=== PATIENT | male | born 1985 | race Caucasian/White ===

== ENCOUNTER 2016-09-12 16:43 | Emergency (ER) | payer OTHER ==
[~2016-09-12] VITALS: Ht 172.7 cm; Wt 80.9 kg
[2016-09-12 16:45] VITALS: TEMP 99.6
[2016-09-12] MEDS ORDERED: ADDERALL20 MG PO (17:02)
[2016-09-12] MEDS ORDERED: ATIVAN 0.50.5 MG/TAB PO (17:02)
[2016-09-12] MEDS ORDERED: ADDERALL XR25 MG PO (17:02)
[2016-09-12] MEDS ORDERED: REMERON 15M15 MG/TA1 PO (17:03)
[2016-09-12] MEDS ORDERED: ADDERALL XR20 MG PO (17:03)
[2016-09-12 17:28] LABS: HEMATOCRIT 45.4 % (42.0-52.0); HEMOGLOBIN 15.5 g/dl (13.5-18.0); MEAN CELL VOLUME 86 fl (80.0-100.0); MEAN CORPUSCULAR HEMOGLOBIN 29 pg (27.0-31.0); MEAN CORPUSCULAR HGB CONC 34 g/dl (33.0-37.0); MEAN PLATELET VOLUME 9.3 fl (7.4-10.4); PLATELET COUNT 211 K/mm3 (130-400); RED BLOOD COUNT 5.29 M/mm3 (4.20-5.60); REDCELL DISTRIBUTION WIDTH-CV 11.9 % (11.5-14.5); WHITE BLOOD COUNT 13.6 K/mm3 (4.8-10.8)
[2016-09-12 17:42] LABS: ALBUMIN 3.8 gm/dL (3.5-5.0); BILIRUBIN,TOTAL 0.7 mg/dL (0.0-1.0); C-REACTIVE PROTEIN 2.2 mg/dL (0.0-0.9); CALCIUM 8.8 mg/dL (8.4-10.2); CREATININE, serum 0.86 mg/dL (0.66-1.25); POTASSIUM 3.7 mmol/L (3.4-5.0); TOTAL PROTEIN 7.4 gm/dL (6.4-8.2)
[2016-09-12 17:43] LABS: INFLUENZA B NEGATIVE
[2016-09-12 17:47] LABS: ADD PATHOLOGY DIFF REVIEW YES; BAND 11 % (0-10); EOSINOPHIL 4 % (0-4); NEUTROPHILS 18 % (42.0-75.2); PLATELET ESTIMATE NORMAL (NORMAL); TOTAL CELLS COUNTED 100
[2016-09-12 17:49] LABS: ERYTHROCYTE SEDIMENTATION RATE 6 mm/hr (0-15)
[2016-09-12 19:09] VITALS: BP 132/90; PULSE 105
[2016-09-14 08:32] LABS: PATHOLOGY DIFF REVIEW OK +
== END 2016-09-12 19:30 | disposition home or self-care (01) ==
LOC: COL.ER 16:43
PROVIDERS: Emergency Medicine
DX: R61 Generalized hyperhidrosis (principal); R51 Headache; B34.9 Viral infection, unspecified; R00.0 Tachycardia, unspecified; R50.9 Fever, unspecified; R05 Cough; F17.210 Nicotine dependence, cigarettes, uncomplicated; F90.9 Attention-deficit hyperactivity disorder, unspecified type; F41.9 Anxiety disorder, unspecified; R55 Syncope and collapse
CPT/HCPCS: J2060; J7030

== ENCOUNTER 2016-11-30 17:39 | Emergency (ER) | payer OTHER ==
[~2016-11-30] VITALS: Ht 172.7 cm; Wt 85.9 kg
[~2016-11-30 17:39] MED LIST: ADDERALL XR20 MG PO; ADDERALL XR25 MG PO; ADDERALL20 MG PO; ATIVAN 0.50.5 MG/TAB PO; REMERON 15M15 MG/TA1 PO
[2016-11-30 17:40] VITALS: TEMP 98.3
[2016-11-30] MEDS ORDERED: CHANTIX 1MG1 MG PO (18:26)
[2016-11-30] MEDS ORDERED: AMOXICILLIN 8751 TAB PO (18:59)
[2016-11-30] MEDS ORDERED: PREDNISONE10 MG PO (18:59)
[2016-11-30 19:10] VITALS: BP 120/84; PULSE 91
== END 2016-11-30 19:10 | disposition home or self-care (01) ==
LOC: COL.ER 17:39
DX: J32.0 Chronic maxillary sinusitis (principal); J33.9 Nasal polyp, unspecified
CPT/HCPCS: J7512

== ENCOUNTER 2017-03-11 13:02 | Emergency (ER) | payer OTHER ==
[~2017-03-11] VITALS: Ht 172.7 cm; Wt 86.4 kg
[~2017-03-11 13:02] MED LIST changes: +AMOXICILLIN 8751 TAB PO; +CHANTIX 1MG1 MG PO; +PREDNISONE10 MG PO
[2017-03-11 13:08] VITALS: BP 126/84; PULSE 98; TEMP 98.3
[2017-03-11] MEDS ORDERED: ATIVAN 0.50.5 MG/TAB PO (13:50)
== END 2017-03-11 14:09 | disposition home or self-care (01) ==
LOC: COL.ER 13:02
DX: F41.9 Anxiety disorder, unspecified (principal); F43.10 Post-traumatic stress disorder, unspecified; F17.210 Nicotine dependence, cigarettes, uncomplicated

== ENCOUNTER → 2017-07-12 | Outpatient (CLI) | payer OTHER | LOC: MHCPAIN 08:21 | DX: G89.29 Other chronic pain (principal); M47.817 Spondylosis without myelopathy or radiculopathy, lumbosacral region; M54.16 Radiculopathy, lumbar region; M53.3 Sacrococcygeal disorders, not elsewhere classified | CPT/HCPCS: G0463 ==

== ENCOUNTER → 2017-07-15 | Outpatient (CLI) | payer OTHER | LOC: MHCPAIN 07:48 | DX: M47.27 Other spondylosis with radiculopathy, lumbosacral region (principal); M43.16 Spondylolisthesis, lumbar region; M48.061 Spinal stenosis, lumbar region without neurogenic claudication | CPT/HCPCS: J1100; Q9967 ==

== ENCOUNTER → 2017-07-30 | Outpatient (CLI) | payer OTHER | LOC: MHCPAIN 10:40 | DX: G89.29 Other chronic pain (principal); M47.817 Spondylosis without myelopathy or radiculopathy, lumbosacral region; M54.16 Radiculopathy, lumbar region; M53.3 Sacrococcygeal disorders, not elsewhere classified | CPT/HCPCS: G0463 ==

== ENCOUNTER → 2017-08-19 | Outpatient (CLI) | payer OTHER ==
[~2017-08-19] MED LIST changes: +CYMBALTA 20MG20 MG
== END ==
LOC: MHCPAIN 13:43
DX: M47.817 Spondylosis without myelopathy or radiculopathy, lumbosacral region (principal); M43.16 Spondylolisthesis, lumbar region
CPT/HCPCS: J1040; Q9967

== ENCOUNTER 2017-08-24 12:31 | Emergency (ER) | payer OTHER ==
[~2017-08-24] VITALS: Ht 172.7 cm; Wt 90.9 kg
[~2017-08-24 12:31] MED LIST changes: -CYMBALTA 20MG20 MG
[2017-08-24 12:36] VITALS: BP 139/91; TEMP 98.7
[2017-08-24] MEDS ORDERED: CYMBALTA 20MG20 MG (13:40)
[2017-08-24 13:49] LABS: BASO % 0.4 % (0.0-2.0); EOS # 0.1 (0.0-0.7); EOS % 0.5 % (0-4.0); GRAN # 6.2 (1.4-6.5); GRAN % 61.1 % (42.2-75.2); HEMATOCRIT 48.4 % (42.0-52.0); HEMOGLOBIN 16.5 g/dl (13.5-18.0); LYMPH # 3.2 (1.2-3.4); LYMPH % 31.7 % (20.0-51.0); MEAN CELL VOLUME 87 fl (80.0-100.0); MEAN CORPUSCULAR HEMOGLOBIN 30 pg (27.0-31.0); MEAN CORPUSCULAR HGB CONC 34 g/dl (33.0-37.0); MEAN PLATELET VOLUME 8.8 fl (7.4-10.4); MONO # 0.6 (0.1-0.6); MONO % 5.9 % (1.7-9.3); PLATELET COUNT 276 K/mm3 (130-400); RED BLOOD COUNT 5.54 M/mm3 (4.20-5.60); REDCELL DISTRIBUTION WIDTH-CV 11.6 % (11.5-14.5)
[2017-08-24 14:00] LABS: ALANINE AMINOTRANSFERASE 59 U/L (21-72); ALBUMIN 4.8 gm/dL (3.5-5.0); ALKALINE PHOSPHATASE 66 U/L (50-136); ANION GAP 13 mmol/L (7-16); AST,SGOT 27 U/L (15-37); BILIRUBIN,TOTAL 0.3 mg/dL (0.0-1.0); BLOOD UREA NITROGEN 12 mg/dL (9-20); CALCIUM 10.2 mg/dL (8.4-10.2); CARBON DIOXIDE 31 mmol/L (22-30); CHLORIDE 96 mmol/L (98-107); CREATININE, serum 0.87 mg/dL (0.66-1.25); GLUCOSE 91 mg/dL (74-106); LIPASE 59 U/L (23-300); POTASSIUM 3.9 mmol/L (3.4-5.0); SODIUM 140 mmol/L (137-145); TOTAL PROTEIN 9.1 gm/dL (6.4-8.2)
[2017-08-24 14:15] LABS: TROPONIN-I < 0.012 ng/mL (0.000-0.034)
[2017-08-24 15:15] VITALS: PULSE 108
== END 2017-08-24 15:16 | disposition home or self-care (01) ==
LOC: COL.ER 12:31
PROVIDERS: Physician Assistant
DX: F41.9 Anxiety disorder, unspecified (principal); R07.89 Other chest pain; F43.10 Post-traumatic stress disorder, unspecified

== ENCOUNTER → 2017-09-17 | Outpatient (CLI) | payer OTHER ==
[~2017-09-17] MED LIST changes: +CYMBALTA 20MG20 MG
== END ==
LOC: MHCPAIN 09:49
DX: G89.29 Other chronic pain (principal); M47.27 Other spondylosis with radiculopathy, lumbosacral region; M43.17 Spondylolisthesis, lumbosacral region; M53.3 Sacrococcygeal disorders, not elsewhere classified; F17.210 Nicotine dependence, cigarettes, uncomplicated
CPT/HCPCS: G0463

== ENCOUNTER → 2017-09-21 | Outpatient (CLI) | payer OTHER | LOC: COL.RAD 09:07 | DX: M43.17 Spondylolisthesis, lumbosacral region (principal) ==

== ENCOUNTER → 2017-09-23 | Outpatient (CLI) | payer OTHER | LOC: MHCPAIN 12:02 | DX: M47.27 Other spondylosis with radiculopathy, lumbosacral region (principal); M43.16 Spondylolisthesis, lumbar region; M46.96 Unspecified inflammatory spondylopathy, lumbar region | CPT/HCPCS: J1040; Q9967 ==

== ENCOUNTER → 2017-10-06 | Outpatient (CLI) | payer OTHER | LOC: MHCPAIN 10:06 | DX: G89.29 Other chronic pain (principal); M47.817 Spondylosis without myelopathy or radiculopathy, lumbosacral region; M54.16 Radiculopathy, lumbar region; M53.3 Sacrococcygeal disorders, not elsewhere classified | CPT/HCPCS: G0463 ==

== ENCOUNTER → 2017-11-25 | Outpatient (CLI) | payer OTHER | LOC: MHCPAIN 14:26 | DX: M47.817 Spondylosis without myelopathy or radiculopathy, lumbosacral region (principal); M43.07 Spondylolysis, lumbosacral region ==

== ENCOUNTER → 2017-12-16 | Outpatient (CLI) | payer OTHER | LOC: MHCPAIN 12:48 | DX: M54.16 Radiculopathy, lumbar region (principal) | CPT/HCPCS: J1100; J2250; J3010 ==

== ENCOUNTER → 2017-12-23 | Outpatient (CLI) | payer OTHER | LOC: MHCPAIN 12:21 | DX: M47.817 Spondylosis without myelopathy or radiculopathy, lumbosacral region (principal); M54.16 Radiculopathy, lumbar region | CPT/HCPCS: J1100; J2250; J3010 ==

== ENCOUNTER → 2018-02-22 | Outpatient (CLI) | payer OTHER | LOC: MHCPAIN 10:22 | DX: G89.29 Other chronic pain (principal); M47.817 Spondylosis without myelopathy or radiculopathy, lumbosacral region; M54.16 Radiculopathy, lumbar region; M53.3 Sacrococcygeal disorders, not elsewhere classified | CPT/HCPCS: G0463 ==

== ENCOUNTER → 2019-01-11 | Outpatient (CLI) | payer OTHER | LOC: MHCPAIN 12:47 | DX: G89.29 Other chronic pain (principal); M47.817 Spondylosis without myelopathy or radiculopathy, lumbosacral region; M54.16 Radiculopathy, lumbar region; M53.3 Sacrococcygeal disorders, not elsewhere classified | CPT/HCPCS: G0463 ==

== ENCOUNTER → 2019-12-11 | Outpatient (CLI) | payer OTHER | LOC: MHCPAIN 08:58 | DX: M47.817 Spondylosis without myelopathy or radiculopathy, lumbosacral region (principal); M54.5 Low back pain; M53.3 Sacrococcygeal disorders, not elsewhere classified; G89.29 Other chronic pain; M54.16 Radiculopathy, lumbar region | CPT/HCPCS: G0463 ==

== ENCOUNTER → 2019-12-14 | Outpatient (CLI) | payer OTHER | LOC: MHCPAIN 14:18 | DX: M47.817 Spondylosis without myelopathy or radiculopathy, lumbosacral region (principal); M54.5 Low back pain; M53.3 Sacrococcygeal disorders, not elsewhere classified; M54.16 Radiculopathy, lumbar region | CPT/HCPCS: J1100; Q9967 ==

== ENCOUNTER → 2020-01-23 | Outpatient (CLI) | payer OTHER | LOC: MHCPAIN 01-01 09:45 | DX: M47.817 Spondylosis without myelopathy or radiculopathy, lumbosacral region (principal); M54.5 Low back pain; M53.3 Sacrococcygeal disorders, not elsewhere classified; G89.29 Other chronic pain | CPT/HCPCS: G0463 ==

== ENCOUNTER → 2020-02-01 | Outpatient (CLI) | payer OTHER | LOC: MHCPAIN 12:16 | DX: M47.817 Spondylosis without myelopathy or radiculopathy, lumbosacral region (principal); M54.5 Low back pain | CPT/HCPCS: J2250; J3010 ==

== ENCOUNTER → 2020-02-05 | Outpatient (CLI) | payer OTHER | LOC: MHCPAIN 12:24 | DX: M47.817 Spondylosis without myelopathy or radiculopathy, lumbosacral region (principal); M54.5 Low back pain | CPT/HCPCS: J1040; J2250; J3010 ==

== ENCOUNTER 2020-08-14 15:19 | Emergency (ER) | payer OTHER ==
[~2020-08-14] VITALS: Ht 172.7 cm; Wt 88.6 kg
[2020-08-14 15:54] LABS: BASO % 0.2 % (0.0-2.0); EOS # 0.1 (0.0-0.7); EOS % 0.7 % (0-4.0); GRAN # 9.5 (1.4-6.5); GRAN % 70.9 % (42.2-75.2); HEMOGLOBIN 14.9 g/dl (13.5-18.0); LYMPH # 2.7 (1.2-3.4); LYMPH % 19.9 % (20.0-51.0); MEAN CELL VOLUME 88 fl (80.0-100.0); MEAN CORPUSCULAR HEMOGLOBIN 30 pg (27.0-31.0); MEAN CORPUSCULAR HGB CONC 34 g/dl (33.0-37.0); MEAN PLATELET VOLUME 9.3 fl (7.4-10.4); MONO # 1.1 (0.1-0.6); PLATELET COUNT 231 K/mm3 (130-400); REDCELL DISTRIBUTION WIDTH-CV 11.8 % (11.5-14.5)
[2020-08-14 16:15] LABS: ALBUMIN 4.5 gm/dL (3.5-5.0); BILIRUBIN,TOTAL 0.8 mg/dL (0.0-1.0); C-REACTIVE PROTEIN 5.7 mg/dL (0.0-0.9); CALCIUM 9.4 mg/dL (8.4-10.2); CREATININE, serum 0.89 (0.66-1.25); TOTAL PROTEIN 8.2 gm/dL (6.4-8.2)
[2020-08-14 17:23] LABS: COLLECTION METHOD CLEAN CATCH
[2020-08-14 17:34] LABS: PH 7 (5-8); SQUAMOUS EPITHELIAL None Seen /hpf; URINE APPEARANCE Clear; URINE BACTERIA None Seen /hpf; URINE BILIRUBIN Negative (NEGATIVE); URINE BLOOD Negative (NEGATIVE); URINE COLOR Straw; URINE GLUCOSE Negative (NEGATIVE); URINE KETONE Negative (NEGATIVE); URINE LEUKOCYTE ESTERASE 1+ (NEGATIVE); URINE NITRATE Negative (NEGATIVE); URINE PROTEIN(semi-quant) Negative (NEGATIVE); URINE RBC 0-2 /hpf; URINE UROBILINOGEN Negative (NEGATIVE)
[2020-08-14] MEDS ORDERED: ZOFRAN ODT4 MG PO (17:56)
[2020-08-14] MEDS ORDERED: NORCO 325 MG-51 TAB PO (17:57)
[2020-08-14 18:06] VITALS: BP 113/78; PULSE 98; TEMP 98.2
== END 2020-08-14 18:07 | disposition home or self-care (01) ==
LOC: COL.ER 15:19
PROVIDERS: Physician Assistant
DX: K85.90 Acute pancreatitis without necrosis or infection, unspecified (principal); K57.90 Diverticulosis of intestine, part unspecified, without perforation or abscess without bleeding; F41.9 Anxiety disorder, unspecified
CPT/HCPCS: J2270; J2405; J7030; Q9967

== ENCOUNTER 2023-12-22 17:26 | Emergency (ER) | payer OTHER ==
[~2023-12-22] VITALS: Ht 172.7 cm; Wt 88.2 kg
[~2023-12-22 17:26] MED LIST changes: +NORCO 325 MG-51 TAB PO; +ZOFRAN ODT4 MG PO
[2023-12-22 17:30] VITALS: TEMP 99.4
[2023-12-22] MEDS ORDERED: NS 1,000 ML IV ONE ×2 (17:45→18:45)
[2023-12-22 18:07] LABS: BASO % 0.3 % (0.0-2.0); EOS % 0.4 % (0.0-4.0); GRAN # 9.8 K/mm3 (1.4-6.5); GRAN % 91.8 % (42.2-75.2); HEMATOCRIT 45.4 % (42.0-52.0); HEMOGLOBIN 15.9 g/dl (13.5-18.0); LYMPH # 0.5 K/mm3 (1.2-3.4); LYMPH % 4.4 % (20.0-51.0); MEAN CELL VOLUME 86 fl (80.0-100.0); MEAN CORPUSCULAR HEMOGLOBIN 30 pg (27-31); MEAN CORPUSCULAR HGB CONC 35 g/dl (33.0-37.0); MEAN PLATELET VOLUME 9.4 fl (7.4-10.4); MONO # 0.3 K/mm3 (0.1-0.6); MONO % 2.9 % (1.7-9.3); PLATELET COUNT 246 K/mm3 (130-400); RED BLOOD COUNT 5.27 M/mm3 (4.20-5.60); REDCELL DISTRIBUTION WIDTH-CV 11.7 % (11.5-14.5)
[2023-12-22 18:17] LABS: ALBUMIN 4.5 g/dL (3.5-5.0); BILIRUBIN,TOTAL 0.8 mg/dL (0.2-1.2); CALCIUM 9.7 mg/dL (8.4-10.2); CREATININE, serum 0.91 mg/dL (0.72-1.25); POTASSIUM 3.9 mEq/L (3.5-4.5); TOTAL PROTEIN 7.8 g/dl (6.2-8.1)
[2023-12-22 18:55] LABS: COLLECTION METHOD CLEAN CATCH
[2023-12-22 19:03] LABS: URINE APPEARANCE Clear (CLEAR/HAZY); URINE COLOR Yellow (YELLOW); URINE GLUCOSE Negative (NEGATIVE); URINE KETONE 3+ (NEGATIVE); URINE NITRATE Negative (NEGATIVE); URINE PROTEIN(semi-quant) Negative (NEGATIVE)
[2023-12-22 19:04] LABS: URINE BLOOD 1+ (NEGATIVE)
[2023-12-22 19:43] VITALS: BP 128/86; PULSE 91
== END 2023-12-22 19:47 | disposition home or self-care (01) ==
LOC: COL.ER 17:26
PROVIDERS: Physician Assistant
DX: E86.0 Dehydration (principal)
CPT/HCPCS: J7030

== ENCOUNTER → 2024-04-12 | Outpatient (CLI) | payer OTHER | LOC: MHCPAIN 08:04 | DX: M54.16 Radiculopathy, lumbar region (principal); M54.50 Low back pain, unspecified; G89.29 Other chronic pain; M47.817 Spondylosis without myelopathy or radiculopathy, lumbosacral region; M43.06 Spondylolysis, lumbar region; M43.17 Spondylolisthesis, lumbosacral region; M41.86 Other forms of scoliosis, lumbar region | CPT/HCPCS: G0463 ==